=== PATIENT | female | born 1940 | race Caucasian/White ===

== ENCOUNTER 2016-07-29 15:15 | Inpatient (IN) | payer OTHER ==
--- NOTE | 2016-07-29 16:36 | PDOC ---
History of Present Illness - General History Source: Patient Exam Limitations: No Limitations - History of Present Illness Initial Comments: 07/29/16 16:38 Patient is a 76 year old female with significant past medical history of anemia , asthma, hypertension and hiatal hernia who presents to the ED with SOB and cough for 5 days. Patient reports cough and bringing up green phlegm. Patient denies fever, chills, nausea, vomiting, abdominal pain or hematochezia. Patient notes that she was transfused in the past for her anemia. <Shayy Freitas - Last Filed: 07/29/16 17:22> <Vik Car - Last Filed: 07/29/16 17:25> - General Chief Complaint: Shortness of Breath Stated Complaint: sat 93% ASTHMA, COLD SYMPTOMS Time Seen by Provider: 07/29/16 16:11 Past History <Shayy Freitas - Last Filed: 07/29/16 17:22> - Past Medical History Anemia: Yes Asthma: Yes Cancer: No Cardiac Disorders: Yes (ANGIOGRAM CARDIAC CATH 07/30/13) CVA: No COPD: No CHF: No Dementia: No Diabetes: Yes (NIDDM) GI Disorders: No Disorders: No HTN: Yes Hypercholesterolemia: Yes Liver Disease: No Seizures: No Thyroid Disease: No - Surgical History Abdominal Surgery: Yes Appendectomy: Yes Cardiac Surgery: No Cholecystectomy: No Lung Surgery: No Neurologic Surgery: No Orthopedic Surgery: No - Psycho/Social/Smoking Cessation Hx Anxiety: No Suicidal Ideation: No Smoking Status: No Smoking History: Never smoked Have you smoked in the past 12 months: No Number of Cigarettes Smoked Daily: 0 Information on smoking cessation initiated: No Hx Alcohol Use: No Drug/Substance Use Hx: No Substance Use Type: None Hx Substance Use Treatment: No <Vik Car - Last Filed: 07/29/16 17:25> - Past Medical History Allergies/Adverse Reactions: Allergies Allergy/AdvReac Type Severity Reaction Status Date / Time nitrofurantoin Allergy Intermediate Itching Verified 07/29/16 15:44 macrocrystalline [From Macrodantin] shellfish derived Allergy Intermediate Itching Verified 07/29/16 15:44 banana [Banana] Allergy Mild Nausea Verified 07/29/16 15:44 Home Medications: Ambulatory Orders Albuterol Sulfate Inhaler - [Ventolin HFA Inhaler -] 2 inh PO Q4H PRN 07/12/13 Amlodipine Besylate [Norvasc -] 10 mg PO DAILY 07/12/13 Clonidine HCl 0.1 mg PO DAILY 07/12/13 Losartan/Hydrochlorothiazide [Losartan-Hctz 100-25 mg Tab] 1 each PO DAILY 07/12 Metformin Xr [Glucophage Xr -] 1,000 mg PO BID 07/12/13 Montelukast Na [Singulair -] 10 mg PO HS 07/12/13 Salmeterol/Fluticasone [Advair 250Mcg/50Mcg -] 1 inh IH BID 07/12/13 Theophylline Anhydrous [Theophylline] 150 mg PO DAILY 07/12/13 Atorvastatin Ca [Lipitor] 40 mg PO HS 08/10/13 Labetalol HCl [Trandate] 50 mg PO BID 08/10/13 Oxycodone HCl/Acetaminophen [Percocet 5-325 mg Tablet -] 1 - 2 tab PO Q4H PRN # 30 tablet 08/11/13 Review of Systems - Review of Systems Able to Perform ROS?: Yes Comments:: 07/29/16 16:38 General: Absent: fever, chills Respiratory: +cough, +SOB GI: Absent: nausea, vomiting, abdominal pain, hematochezia <Shayy Freitas - Last Filed: 07/29/16 17:22> *Physical Exam - Vital Signs Last Vital Signs Temp Pulse Resp BP Pulse Ox 98.3 F 71 22 144/64 95 07/29/16 15:45 07/29/16 15:45 07/29/16 15:45 07/29/16 15:45 07/29/16 16:09 <Sahyy Freitas - Last Filed: 07/29/16 17:22> - Vital Signs Last Vital Signs Temp Pulse Resp BP Pulse Ox 98.3 F 71 22 144/64 95 07/29/16 15:45 07/29/16 15:45 07/29/16 15:45 07/29/16 15:45 07/29/16 16:09 - Physical Exam General Appearance: Yes: Nourished, Appropriately Dressed, Mild Distress HEENT: positive: Normal ENT Inspection Neck: positive: Supple. negative: Tender, Carotid bruit Respiratory/Chest: positive: Lungs Clear, Normal Breath Sounds, Respiratory Distress (MILD NOT FULL SENTENCESS) Cardiovascular: positive: Regular Rhythm, Regular Rate Gastrointestinal/Abdominal: positive: Normal Bowel Sounds, Soft. negative: Tender Musculoskeletal: positive: Normal Inspection. negative: CVA Tenderness Extremity: positive: Normal Capillary Refill, Normal Range of Motion. negative : Pedal Edema Integumentary: positive: Normal Color, Pale. negative: Petechiae, Ecchymosis, Bruising Neurologic: positive: Fully Oriented, Alert, Normal Mood/Affect, Normal Response , Motor Strength 5/5 <Vik Car - Last Filed: 07/29/16 17:25> Heart Score/ECG Review #1 07/29/16 16:46 ECG was reviewed by Dr. Chacon Impression: Normal sinus rhythm Left axis deviation Septal infarct Vent rate 66 bpm <Shayy Freitas - Last Filed: 07/29/16 17:22> ED Treatment Course - LABORATORY CBC & Chemistry Diagram: 07/29/16 16:38 07/29/16 16:38 <Shayy Freitas - Last Filed: 07/29/16 17:22> - LABORATORY CBC & Chemistry Diagram: 07/29/16 16:38 07/29/16 16:38 <Vik Car - Last Filed: 07/29/16 17:25> Medical Decision Making - Medical Decision Making 07/29/16 17:[address] with Dr. Messer. Patient will be admitted. Will be placed on abx and transfused. <Shayy Freitas - Last Filed: 07/29/16 17:22> *DC/Admit/Observation/Transfer - Attestations Scribe Attestion: 07/29/16 16:38 Documentation prepared by MARIFER Clarke, acting as medical physiologist for Vik Car MD/DO. <Shayy Freitas - Last Filed: 07/29/16 17:22> - Discharge Dispostion Admit: Yes <Vik Car - Last Filed: 07/29/16 17:25> Diagnosis at time of Disposition: Symptomatic anemia, Bronchitis - Referrals Referrals: Aman Griffin MD [Primary Care Provider] -
[2016-07-29] MEDS ORDERED: SODIUM CHLORIDE 1,000 ML IV SCH (16:45)
[2016-07-29 16:52] LABS: MEAN CELL VOLUME 61.7 fl (80-96); MEAN PLT VOLUME 9.6 fl (7.5-11.1); PLATELET COUNT 262 K/MM3 (134-434); RDW 19.1 % (11.6-15.6); WHITE BLOOD COUNT 8.5 K/mm3 (4.0-10.0)
[2016-07-29 16:54] LABS: MCH 18.5 pg (25.7-33.7)
[2016-07-29 17:21] LABS: ALBUMIN 3.1 g/dl (3.4-5.0); ALK PHOS 100 U/L (45-117); ANION GAP 8 (8-16); BILIRUBIN,TOTAL 0.4 mg/dL (0.2-1.0); CALCIUM 8.9 mg/dL (8.5-10.1); CO2 27 mmol/L (21-32); CREATININE 0.9 mg/dL (0.55-1.02); GLUCOSE,RANDOM 165 mg/dL (74-106); SGOT/AST 19 U/L (15-37); SGPT/ALT 18 U/L (12-78); TOT PROT 6.7 g/dl (6.4-8.2)
[2016-07-29] MEDS ORDERED: methylPREDNISolone NA SUCC 125 MG/2 ML VIAL IVPB ONE (17:23)
[2016-07-29] MEDS ORDERED: methylPREDNISolone NA SUCC 125 MG/2 ML VIAL ONE (17:37)
[2016-07-29 20:31] LABS: ANISOCYTOSIS 1+; HYPOCHROMIA 3+; MICROCYTOSIS 2+; OVALOCYTES 1+; PLATELET ESTIMATE ADEQUATE (NORMAL); POIKILOCYTOSIS 1+; POLYCHROMASIA 1+; TEAR DROP CELLS RARE
[2016-07-29] MEDS ORDERED: ACETAMINOPHEN 325 MG TABLET (FP) PO PRN (20:58)
--- NOTE | 2016-07-29 21:01 | HP ---
Admitting History and Physical - Primary Care Physician PCP: Félix Messer - Admission History of Present Illness: Patient is a 76 year old female with significant past medical history of anemia , asthma, hypertension and hiatal hernia who presents to the ED with SOB and cough for 5 days. Patient reports cough and bringing up green phlegm. she was transfused in the past for her anemia. - Past Medical History Cardiovascular: Yes: HTN, Hyperlipdemia Pulmonary: Yes: Asthma Endocrine: Yes: Diabetes Mellitus - Smoking History Smoking history: Never smoked Have you smoked in the past 12 months: No Aproximately how many cigarettes per day: 0 - Alcohol/Substance Use Hx Alcohol Use: No Home Medications - Allergies Allergies/Adverse Reactions: Allergies Allergy/AdvReac Type Severity Reaction Status Date / Time nitrofurantoin Allergy Intermediate Itching Verified 07/29/16 15:44 macrocrystalline [From Macrodantin] shellfish derived Allergy Intermediate Itching Verified 07/29/16 15:44 banana [Banana] Allergy Mild Nausea Verified 07/29/16 15:44 - Home Medications Home Medications: Ambulatory Orders Albuterol Sulfate Inhaler - [Ventolin HFA Inhaler -] 2 inh PO Q4H PRN 07/12/13 Amlodipine Besylate [Norvasc -] 10 mg PO DAILY 07/12/13 Clonidine HCl 0.1 mg PO DAILY 07/12/13 Losartan/Hydrochlorothiazide [Losartan-Hctz 100-25 mg Tab] 1 each PO DAILY 07/12 Metformin Xr [Glucophage Xr -] 1,000 mg PO BID 07/12/13 Montelukast Na [Singulair -] 10 mg PO HS 07/12/13 Salmeterol/Fluticasone [Advair 250Mcg/50Mcg -] 1 inh IH BID 07/12/13 Theophylline Anhydrous [Theophylline] 150 mg PO DAILY 07/12/13 Atorvastatin Ca [Lipitor] 40 mg PO HS 08/10/13 Labetalol HCl [Trandate] 50 mg PO BID 08/10/13 Oxycodone HCl/Acetaminophen [Percocet 5-325 mg Tablet -] 1 - 2 tab PO Q4H PRN # 30 tablet 08/11/13 Physical Examination Vital Signs: Vital Signs Temperature 98.7 F 07/29/16 20:56 Pulse Rate 90 07/29/16 20:56 Respiratory Rate 20 07/29/16 20:56 Blood Pressure 156/61 07/29/16 20:56 O2 Sat by Pulse Oximetry (%) 98 07/29/16 20:56 Constitutional: Yes: No Distress HENT: Yes: Atraumatic Neck: Yes: Supple Cardiovascular: Yes: Regular Rate and Rhythm Respiratory: Yes: Rhonchi Gastrointestinal: Yes: Normal Bowel Sounds Extremities: Yes: WNL Neurological: Yes: Alert, Oriented Imaging - Results X-ray: Report Reviewed Problem List - Problems (1) Bronchitis Code(s): J40 - BRONCHITIS, NOT SPECIFIED ACUTE OR CHRONIC (2) Symptomatic anemia Code(s): D64.9 - ANEMIA, UNSPECIFIED Assessment/Plan Laboratory Tests 07/29/16 07/29/16 07/29/16 16:38 16:38 16:38 WBC 8.5 RBC 4.80 Hgb 8.9 L Hct 29.6 L MCV 61.7 L MCHC 30.0 L RDW 19.1 H Plt Count 262 MPV 9.6 D Platelet Estimate Adequate Platelet Comment Few giant plts Polychromasia 1+ Hypochromic-Microcytic 3+ Poikilocytosis 1+ Anisocytosis 1+ Microcytosis 2+ Macrocytosis Rare Tear Drop Cells Rare Ovalocytes 1+ Morphology Comment Slide scanned Sodium 140 Potassium 4.8 Chloride 105 Carbon Dioxide 27 Anion Gap 8 BUN 12 D Creatinine 0.9 Creat Clearance w eGFR > 60 Random Glucose 165 H Calcium 8.9 Total Bilirubin 0.4 D AST 19 D ALT 18 D Alkaline Phosphatase 100 D Total Protein 6.7 Albumin 3.1 L Blood Type A POSITIVE Antibody Screen Negative Crossmatch See Detail 07/29/16 17:40 WBC RBC Hgb Hct MCV MCHC RDW Plt Count MPV Platelet Estimate Platelet Comment Polychromasia Hypochromic-Microcytic Poikilocytosis Anisocytosis Microcytosis Macrocytosis Tear Drop Cells Ovalocytes Morphology Comment Sodium Potassium Chloride Carbon Dioxide Anion Gap BUN Creatinine Creat Clearance w eGFR Random Glucose Calcium Total Bilirubin AST ALT Alkaline Phosphatase Total Protein Albumin Blood Type A POSITIVE Antibody Screen Crossmatch Active Medications Generic Name Dose Route Start Last Admin Trade Name Freq PRN Reason Stop Dose Admin Acetaminophen 650 mg 07/29/16 20:58 Tylenol - PO Q6H PRN FEVER OR PAIN Amlodipine Besylate 10 mg 07/30/16 10:00 Norvasc - PO DAILY [facility] Atorvastatin Calcium 40 mg 07/29/16 22:00 Lipitor - PO HS [facility] Sodium Chloride 1,000 mls @ 125 mls/hr 07/29/16 16:45 07/29/16 16:41 Normal Saline - IV 125 mls/hr ASDIR [facility] Administration Ceftriaxone Sodium 1 gm/ 100 mls @ 200 mls/hr 07/30/16 10:00 Dextrose IVPB 07/30/16 11:59 DAILY [facility] Labetalol HCl 50 mg 07/29/16 22:00 Normodyne - PO BID [facility] Metformin HCl 1,000 mg 07/29/16 22:00 Glucophage Xr - PO BID [facility] Montelukast Sodium 10 mg 07/29/16 22:00 Singulair - PO HS [facility] Non-Formulary Medication 0.1 mg 07/30/16 10:00 Clonidine Hcl [Clonidine Hcl] PO DAILY [facility]
[2016-07-29] MEDS: ATORVASTATIN CA 40 MG TABLET (FP) PO SCH (22:27)
[2016-07-29] MEDS: MONTELUKAST NA 10 MG TABLET PO SCH (22:27)
[2016-07-29] MEDS: LABETALOL HCL 100 MG TABLET (FP) PO SCH (22:27)
[2016-07-29] MEDS ORDERED: LABETALOL HCL 100 MG TABLET (FP) ONE (22:28)
[2016-07-29] MEDS ORDERED: ATORVASTATIN CA 40 MG TABLET (FP) ONE (22:29)
[2016-07-29] MEDS ORDERED: MONTELUKAST NA 10 MG TABLET ONE (22:29)
[2016-07-30 03:35] VITALS: BMI 28.0
[2016-07-30 07:01] LABS: MCH 20.4 pg (25.7-33.7); MEAN CELL VOLUME 65.9 fl (80-96); MEAN PLT VOLUME 9.6 fl (7.5-11.1); PLATELET COUNT 202 K/MM3 (134-434); RDW 22.2 % (11.6-15.6); WHITE BLOOD COUNT 7.4 K/mm3 (4.0-10.0)
[2016-07-30 07:57] LABS: ANION GAP 6 (8-16); CALCIUM 9.2 mg/dL (8.5-10.1); CO2 29 mmol/L (21-32); CREATININE 0.8 mg/dL (0.55-1.02); GLUCOSE,RANDOM 209 mg/dL (74-106); SGOT/AST 12 U/L (15-37); SGPT/ALT 19 U/L (12-78)
[2016-07-30 07:59] LABS: ALK PHOS 94 U/L (45-117); BILIRUBIN,TOTAL 0.7 mg/dL (0.2-1.0); TOT PROT 6.5 g/dl (6.4-8.2)
[2016-07-30 09:15] LABS: METAMYELOCYTE 2 % (0-2)
[2016-07-30] MEDS: LABETALOL HCL 100 MG TABLET (FP) PO SCH ×2 (09:54→21:05)
[2016-07-30] MEDS: cloNIDine HCL 0.1 MG TABLET PO SCH (09:55)
[2016-07-30] MEDS: amLODIPine BESYLATE 10 MG TABLET (FP) PO SCH (09:55)
[2016-07-30] MEDS ORDERED: CEFTRIAXONE 50 ML IVPB SCH (10:00)
--- NOTE | 2016-07-30 13:44 | CONSULT ---
Consult Consult Specialty:: infectious diseases Referred by:: Reason for Consultation:: pnemonia - History of Present Illness Chief Complaint: cough,sob History of Present Illness: 76 year old female with significant past medical history of anemia, asthma, hypertension and hiatal hernia who presents to the ED with SOB and cough for 5 days. Patient reports cough and bringing up green phlegm. Patient denies fever, chills, nausea, vomiting, abdominal pain or hematochezia. patient mentions that her sob is so bad that she cannot walk even short distance on sitting she feels better - History Source History Provided By: Patient Limitations to Obtaining History: No Limitations - Past Medical History Cardio/Vascular: Yes: HTN, Hyperlipdemia Pulmonary: Yes: Asthma Endocrine: Yes: Diabetes Mellitus - Alcohol/Substance Use Hx Alcohol Use: No - Smoking History Smoking history: Never smoked Have you smoked in the past 12 months: No Aproximately how many cigarettes per day: 0 Home Medications - Allergies Allergies/Adverse Reactions: Allergies Allergy/AdvReac Type Severity Reaction Status Date / Time nitrofurantoin Allergy Intermediate Itching Verified 07/29/16 15:44 macrocrystalline [From Macrodantin] shellfish derived Allergy Intermediate Itching Verified 07/29/16 15:44 banana [Banana] Allergy Mild Nausea Verified 07/29/16 15:44 - Home Medications Home Medications: Ambulatory Orders Albuterol Sulfate Inhaler - [Ventolin HFA Inhaler -] 2 inh PO Q4H PRN 07/12/13 Amlodipine Besylate [Norvasc -] 10 mg PO DAILY 07/12/13 Clonidine HCl 0.1 mg PO DAILY 07/12/13 Losartan/Hydrochlorothiazide [Losartan-Hctz 100-25 mg Tab] 1 each PO DAILY 07/12 Metformin Xr [Glucophage Xr -] 1,000 mg PO BID 07/12/13 Montelukast Na [Singulair -] 10 mg PO HS 07/12/13 Salmeterol/Fluticasone [Advair 250Mcg/50Mcg -] 1 inh IH BID 07/12/13 Theophylline Anhydrous [Theophylline] 150 mg PO DAILY 07/12/13 Atorvastatin Ca [Lipitor] 40 mg PO HS 08/10/13 Labetalol HCl [Trandate] 50 mg PO BID 08/10/13 Oxycodone HCl/Acetaminophen [Percocet 5-325 mg Tablet -] 1 - 2 tab PO Q4H PRN # 30 tablet 08/11/13 Review of Systems - Review of Systems Constitutional: reports: No Symptoms Eyes: reports: No Symptoms HENT: reports: No Symptoms Neck: reports: No Symptoms Cardiovascular: reports: No Symptoms Respiratory: reports: Cough, SOB, SOB on Exertion, Other (sputum production) Musculoskeletal: reports: No Symptoms Integumentary: reports: No Symptoms Neurological: reports: No Symptoms Endocrine: reports: No Symptoms Hematology/Lymphatic: reports: No Symptoms Psychiatric: reports: No Symptoms Physical Exam Vital Signs: Vital Signs Temperature 98.1 F 07/30/16 10:00 Pulse Rate 78 07/30/16 10:00 Respiratory Rate 18 07/30/16 10:00 Blood Pressure 170/79 07/30/16 10:00 O2 Sat by Pulse Oximetry (%) 94 L 07/30/16 10:00 Constitutional: Yes: Well Nourished, Calm, Mild Distress Neck: Yes: Supple, Trachea Midline Cardiovascular: Yes: Regular Rate and Rhythm Respiratory: Yes: Regular, Other (poor air entry) Gastrointestinal: Yes: Normal Bowel Sounds, Soft Musculoskeletal: Yes: WNL Extremities: Yes: WNL Neurological: Yes: Alert, Oriented Psychiatric: Yes: Alert, Oriented Labs: CBC, BMP 07/30/16 05:35 07/30/16 05:40 Imaging - Results Chest X-ray: Report Reviewed, Image Reviewed Assessment/Plan Problem List - Problems (1) Bronchitis Code(s): J40 - BRONCHITIS, NOT SPECIFIED ACUTE OR CHRONIC (2) Symptomatic anemia Code(s): D64.9 - ANEMIA, UNSPECIFIED 3 pneumonia plan change abx to zosyn as patient is still having greenish sputum will also add zithromax
--- NOTE | 2016-07-30 14:36 | EKG ---
Test Reason : Blood Pressure : / mmHG Vent. Rate : 066 BPM Atrial Rate : 066 BPM P-R Int : 152 ms QRS Dur : 116 ms QT Int : 414 ms P-R-T Axes : 075 -52 062 degrees QTc Int : 434 ms NORMAL SINUS RHYTHM LEFT AXIS DEVIATION NON-SPECIFIC INTRA-VENTRICULAR CONDUCTION DELAY CANNOT RULE OUT ANTEROSEPTAL INFARCT (CITED ON OR BEFORE 12-JUL-2013) ABNORMAL ECG WHEN COMPARED WITH ECG OF 05-AUG-2013 16:38, LIKELY NO SIGNIFICANT CHANGES Confirmed by AFRICA MICHAUD MD ([id number]) on 07/30/2016 2:35:52 PM Referred By: Confirmed By:AFRICA MICHAUD MD
[2016-07-30] MEDS: PIPERACILLIN/TAZOB 2.25 GM 50 ML IVPB SCH ×2 (14:59→17:12)
[2016-07-30] MEDS: AZITHROMYCIN 250 MG TABLET (FP) PO SCH (14:59)
--- NOTE | 2016-07-30 19:37 | PN ---
Progress Note, Physician - Current Medication List Current Medications: Active Medications Acetaminophen (Tylenol -) 650 mg PO Q6H PRN PRN Reason: FEVER OR PAIN Amlodipine Besylate (Norvasc -) 10 mg PO DAILY [facility] Last Admin: 07/30/16 09:55 Dose: 10 mg Atorvastatin Calcium (Lipitor -) 40 mg PO HS [facility] Last Admin: 07/29/16 22:27 Dose: 40 mg Azithromycin (Zithromax -) 500 mg PO DAILY [facility] Last Admin: 07/30/16 14:59 Dose: 500 mg Clonidine (Catapres -) 0.1 mg PO DAILY [facility] Last Admin: 07/30/16 09:55 Dose: 0.1 mg Piperacillin Sod/Tazobactam Sod (Zosyn 2.25gm Ivpb (Pre-Docked)) 50 mls @ 100 mls/hr IVPB Q8H-IV [facility] PRN Reason: Protocol Last Admin: 07/30/16 17:12 Dose: Not Given Labetalol HCl (Normodyne -) 50 mg PO BID [facility] Last Admin: 07/30/16 09:54 Dose: 50 mg [facility] Last Admin: 07/30/16 17:11 Dose: 1,000 mg Montelukast Sodium (Singulair -) 10 mg PO [facility] Last Admin: 07/29/16 22:27 Dose: 10 mg - Objective Vital Signs: Vital Signs Temperature 98.0 F 07/30/16 18:00 Pulse Rate 74 07/30/16 18:00 Respiratory Rate 18 07/30/16 18:00 Blood Pressure 157/74 07/30/16 18:00 O2 Sat by Pulse Oximetry (%) 94 L 07/30/16 18:00 Constitutional: Yes: No Distress HENT: Yes: Atraumatic Neck: Yes: Supple Cardiovascular: Yes: Regular Rate and Rhythm Respiratory: Yes: Rhonchi Gastrointestinal: Yes: Normal Bowel Sounds Extremities: Yes: WNL Neurological: Yes: Alert, Oriented Labs: CBC, BMP 07/30/16 05:35 07/30/16 05:40 Problem List - Problems (1) Bronchitis Code(s): J40 - BRONCHITIS, NOT SPECIFIED ACUTE OR CHRONIC (2) Symptomatic anemia Code(s): D64.9 - ANEMIA, UNSPECIFIED Assessment/Plan 1.bronchitis on abx per id 2.anemia s/p blood transfusion stable
[2016-07-30] MEDS: MONTELUKAST NA 10 MG TABLET PO SCH (21:05)
[2016-07-30] MEDS: ATORVASTATIN CA 40 MG TABLET (FP) PO SCH (21:05)
[2016-07-31] MEDS: PIPERACILLIN/TAZOB 2.25 GM 50 ML IVPB SCH ×3 (01:13→17:23)
[2016-07-31] MEDS ORDERED: ALBUTEROL SO4 0.083% IH SOL 2.5 MG/3 ML VIAL.NEB. NEB ONE (06:30)
[2016-07-31] MEDS ORDERED: ALBUTEROL SO4 0.083% IH SOL 2.5 MG/3 ML VIAL.NEB. NEB PRN (06:55)
[2016-07-31] MEDS ORDERED: PT OWN MED DRAWER 7, Y5N ONE ×2 (09:19→17:10)
[2016-07-31] MEDS: AZITHROMYCIN 250 MG TABLET (FP) PO SCH (09:26)
[2016-07-31] MEDS: amLODIPine BESYLATE 10 MG TABLET (FP) PO SCH (09:26)
[2016-07-31] MEDS: cloNIDine HCL 0.1 MG TABLET PO SCH (09:26)
[2016-07-31] MEDS: LABETALOL HCL 100 MG TABLET (FP) PO SCH ×2 (09:26→21:10)
--- NOTE | 2016-07-31 16:32 | PN ---
Progress Note, Physician History of Present Illness: patient says she is having loose stools has gone couple of times - Current Medication List Current Medications: Active Medications Acetaminophen (Tylenol -) 650 mg PO Q6H PRN PRN Reason: FEVER OR PAIN Albuterol Sulfate (Ventolin 0.083% Nebulizer Soln -) 1 amp NEB Q6H PRN PRN Reason: SHORT OF BREATH/WHEEZING Last Admin: 07/31/16 06:15 Dose: 1 amp Amlodipine Besylate (Norvasc -) 10 mg PO DAILY [facility] Last Admin: 07/31/16 09:26 Dose: 10 mg Atorvastatin Calcium (Lipitor -) 40 mg PO [facility] Last Admin: 07/30/16 21:05 Dose: 40 mg Azithromycin (Zithromax -) 500 mg PO DAILY [facility] Last Admin: 07/31/16 09:26 Dose: 500 mg Clonidine (Catapres -) 0.1 mg PO DAILY [facility] Last Admin: 07/31/16 09:26 Dose: 0.1 mg Piperacillin Sod/Tazobactam Sod (Zosyn 2.25gm Ivpb (Pre-Docked)) 50 mls @ 100 mls/hr IVPB Q8H-IV [facility] PRN Reason: Protocol Last Admin: 07/31/16 09:25 Dose: 100 mls/hr Labetalol HCl (Normodyne -) 50 mg PO BID [facility] Last Admin: 07/31/16 09:26 Dose: 50 mg Metformin HCl (Glucophage Xr -) 1,000 mg PO BIDAC [facility] Last Admin: 07/31/16 08:38 Dose: 1,000 mg Montelukast Sodium (Singulair -) 10 mg PO [facility] Last Admin: 07/30/16 21:05 Dose: 10 mg - Objective Vital Signs: Vital Signs Temperature 98.1 F 07/31/16 14:36 Pulse Rate 71 07/31/16 14:36 Respiratory Rate 24 07/31/16 14:36 Blood Pressure 139/73 07/31/16 14:36 O2 Sat by Pulse Oximetry (%) 94 L 07/31/16 08:45 Constitutional: Yes: No Distress, Calm Cardiovascular: Yes: Regular Rate and Rhythm Respiratory: Yes: Regular, Poor Air Entry Gastrointestinal: Yes: Normal Bowel Sounds, Soft Musculoskeletal: Yes: WNL Extremities: Yes: WNL Neurological: Yes: Alert, Oriented Psychiatric: Yes: Alert Labs: CBC, BMP 07/30/16 05:35 07/30/16 05:40 Assessment/Plan Problem List - Problems (1) Bronchitis Code(s): J40 - BRONCHITIS, NOT SPECIFIED ACUTE OR CHRONIC (2) Symptomatic anemia Code(s): D64.9 - ANEMIA, UNSPECIFIED 3 pneumonia plan continue abx for now will send stool for cdiff
--- NOTE | 2016-07-31 19:19 | PN ---
Progress Note, Physician History of Present Illness: loose stools - Current Medication List Current Medications: Active Medications Acetaminophen (Tylenol -) 650 mg PO Q6H PRN PRN Reason: FEVER OR PAIN Albuterol Sulfate (Ventolin 0.083% Nebulizer Soln -) 1 amp NEB Q6H PRN PRN Reason: SHORT OF BREATH/WHEEZING Last Admin: 07/31/16 06:15 Dose: 1 amp Amlodipine Besylate (Norvasc -) 10 mg PO DAILY [facility] Last Admin: 07/31/16 09:26 Dose: 10 mg Atorvastatin Calcium (Lipitor -) 40 mg PO HS [facility] Last Admin: 07/30/16 21:05 Dose: 40 mg Azithromycin (Zithromax -) 500 mg PO DAILY [facility] Last Admin: 07/31/16 09:26 Dose: 500 mg Clonidine (Catapres -) 0.1 mg PO DAILY [facility] Last Admin: 07/31/16 09:26 Dose: 0.1 mg Piperacillin Sod/Tazobactam Sod (Zosyn 2.25gm Ivpb (Pre-Docked)) 50 mls @ 100 mls/hr IVPB Q8H-IV [facility] PRN Reason: Protocol Last Admin: 07/31/16 17:23 Dose: 100 mls/hr Labetalol HCl (Normodyne -) 50 mg PO BID [facility] Last Admin: 07/31/16 09:26 Dose: 50 mg Metformin HCl (Glucophage Xr -) 1,000 mg PO BIDAC [facility] Last Admin: 07/31/16 17:23 Dose: 1,000 mg Montelukast Sodium (Singulair -) 10 mg PO [facility] Last Admin: 07/30/16 21:05 Dose: 10 mg - Objective Vital Signs: Vital Signs Temperature 97.7 F 07/31/16 17:52 Pulse Rate 80 07/31/16 17:52 Respiratory Rate 20 07/31/16 17:52 Blood Pressure 139/73 07/31/16 14:36 O2 Sat by Pulse Oximetry (%) 94 L 07/31/16 08:45 Constitutional: Yes: No Distress HENT: Yes: Atraumatic Neck: Yes: Supple Cardiovascular: Yes: Regular Rate and Rhythm Respiratory: Yes: CTA Bilaterally Gastrointestinal: Yes: Normal Bowel Sounds Extremities: Yes: WNL Labs: CBC, BMP 07/30/16 05:35 07/30/16 05:40 Problem List - Problems (1) Bronchitis Code(s): J40 - BRONCHITIS, NOT SPECIFIED ACUTE OR CHRONIC (2) Symptomatic anemia Code(s): D64.9 - ANEMIA, UNSPECIFIED Assessment/Plan 1.bronchitis on abx per id 2.anemia s/p blood transfusion stable 3.diarrhea will check c diff
[2016-07-31] MEDS: MONTELUKAST NA 10 MG TABLET PO SCH (21:10)
[2016-07-31] MEDS: ATORVASTATIN CA 40 MG TABLET (FP) PO SCH (21:10)
[2016-07-31] MEDS: predniSONE 20 MG TABLET (UD) PO SCH (21:10)
[2016-08-01] MEDS: PIPERACILLIN/TAZOB 2.25 GM 50 ML IVPB SCH ×3 (01:44→17:24)
[2016-08-01 06:54] LABS: MCH 20.5 pg (25.7-33.7); MCHC 31.2 g/dl (32.0-36.0); MEAN CELL VOLUME 65.6 fl (80-96); MEAN PLT VOLUME 9.4 fl (7.5-11.1); PLATELET COUNT 222 K/MM3 (134-434); RDW 23.4 % (11.6-15.6); WHITE BLOOD COUNT 9.3 K/mm3 (4.0-10.0)
[2016-08-01] MEDS: AZITHROMYCIN 250 MG TABLET (FP) PO SCH (09:53)
[2016-08-01] MEDS: predniSONE 20 MG TABLET (UD) PO SCH (09:53)
[2016-08-01] MEDS: cloNIDine HCL 0.1 MG TABLET PO SCH (09:53)
[2016-08-01] MEDS: amLODIPine BESYLATE 10 MG TABLET (FP) PO SCH (09:53)
[2016-08-01] MEDS: LABETALOL HCL 100 MG TABLET (FP) PO SCH ×2 (09:54→21:56)
[2016-08-01 11:04] LABS: ANISOCYTOSIS 3+; HYPOCHROMIA 2+; MICROCYTOSIS 2+
--- NOTE | 2016-08-01 15:11 | PN ---
Progress Note, Physician History of Present Illness: patient feels much better dirrhoea improving cdiff negative - Current Medication List Current Medications: Active Medications Acetaminophen (Tylenol -) 650 mg PO Q6H PRN PRN Reason: FEVER OR PAIN Albuterol Sulfate (Ventolin 0.083% Nebulizer Soln -) 1 amp NEB Q6H PRN PRN Reason: SHORT OF BREATH/WHEEZING Last Admin: 07/31/16 06:15 Dose: 1 amp Amlodipine Besylate (Norvasc -) 10 mg PO DAILY [facility] Last Admin: 08/01/16 09:53 Dose: 10 mg Atorvastatin Calcium (Lipitor -) 40 mg PO [facility] Last Admin: 07/31/16 21:10 Dose: 40 mg Azithromycin (Zithromax -) 500 mg PO DAILY [facility] Last Admin: 08/01/16 09:53 Dose: 500 mg Clonidine (Catapres -) 0.1 mg PO DAILY [facility] Last Admin: 08/01/16 09:53 Dose: 0.1 mg Piperacillin Sod/Tazobactam Sod (Zosyn 2.25gm Ivpb (Pre-Docked)) 50 mls @ 100 mls/hr IVPB Q8H-IV [facility] PRN Reason: Protocol Last Admin: 08/01/16 09:55 Dose: 100 mls/hr Labetalol HCl (Normodyne -) 50 mg PO BID [facility] Last Admin: 08/01/16 09:54 Dose: 50 mg Metformin HCl (Glucophage Xr -) 1,000 mg PO BIDAC [facility] Last Admin: 08/01/16 06:51 Dose: 1,000 mg Montelukast Sodium (Singulair -) 10 mg PO [facility] Last Admin: 07/31/16 21:10 Dose: 10 mg Prednisone (Deltasone -) 40 mg PO DAILY [facility] Last Admin: 08/01/16 09:53 Dose: 40 mg - Objective Vital Signs: Vital Signs Temperature 97.8 F 08/01/16 14:21 Pulse Rate 72 08/01/16 14:21 Respiratory Rate 20 08/01/16 14:21 Blood Pressure 131/77 08/01/16 14:21 O2 Sat by Pulse Oximetry (%) 94 L 08/01/16 10:46 Constitutional: Yes: No Distress, Calm Cardiovascular: Yes: Regular Rate and Rhythm Respiratory: Yes: Regular, Poor Air Entry Gastrointestinal: Yes: Normal Bowel Sounds, Soft Musculoskeletal: Yes: WNL Extremities: Yes: WNL Neurological: Yes: Alert, Oriented Psychiatric: Yes: Alert Assessment/Plan Problem List - Problems (1) Bronchitis Code(s): J40 - BRONCHITIS, NOT SPECIFIED ACUTE OR CHRONIC (2) Symptomatic anemia Code(s): D64.9 - ANEMIA, UNSPECIFIED 3 pneumonia plan continue abx will switch to oral on friday incentive amber rest ct current mgmt
--- NOTE | 2016-08-01 18:10 | PN ---
Progress Note, Physician History of Present Illness: loose stools - Current Medication List Current Medications: Active Medications Acetaminophen (Tylenol -) 650 mg PO Q6H PRN PRN Reason: FEVER OR PAIN Albuterol Sulfate (Ventolin 0.083% Nebulizer Soln -) 1 amp NEB Q6H PRN PRN Reason: SHORT OF BREATH/WHEEZING Last Admin: 07/31/16 06:15 Dose: 1 amp Amlodipine Besylate (Norvasc -) 10 mg PO DAILY [facility] Last Admin: 08/01/16 09:53 Dose: 10 mg Atorvastatin Calcium (Lipitor -) 40 mg PO HS [facility] Last Admin: 07/31/16 21:10 Dose: 40 mg Azithromycin (Zithromax -) 500 mg PO DAILY [facility] Last Admin: 08/01/16 09:53 Dose: 500 mg Clonidine (Catapres -) 0.1 mg PO DAILY [facility] Last Admin: 08/01/16 09:53 Dose: 0.1 mg Piperacillin Sod/Tazobactam Sod (Zosyn 2.25gm Ivpb (Pre-Docked)) 50 mls @ 100 mls/hr IVPB Q8H-IV JUVENAL PRN Reason: Protocol Last Admin: 08/01/16 17:24 Dose: 100 mls/hr Labetalol HCl (Normodyne -) 50 mg PO BID [facility] Last Admin: 08/01/16 09:54 Dose: 50 mg Metformin HCl (Glucophage Xr -) 1,000 mg PO BIDAC [facility] Last Admin: 08/01/16 17:23 Dose: 1,000 mg Montelukast Sodium (Singulair -) 10 mg PO [facility] Last Admin: 07/31/16 21:10 Dose: 10 mg Prednisone (Deltasone -) 40 mg PO DAILY [facility] Last Admin: 08/01/16 09:53 Dose: 40 mg - Objective Vital Signs: Vital Signs Temperature 97.8 F 08/01/16 14:21 Pulse Rate 72 08/01/16 14:21 Respiratory Rate 20 08/01/16 14:21 Blood Pressure 131/77 08/01/16 14:21 O2 Sat by Pulse Oximetry (%) 94 L 08/01/16 10:46 Constitutional: Yes: No Distress HENT: Yes: Atraumatic Neck: Yes: Supple Cardiovascular: Yes: Regular Rate and Rhythm Respiratory: Yes: CTA Bilaterally Gastrointestinal: Yes: Normal Bowel Sounds Extremities: Yes: WNL Neurological: Yes: Alert, Oriented Problem List - Problems (1) Bronchitis Code(s): J40 - BRONCHITIS, NOT SPECIFIED ACUTE OR CHRONIC (2) Symptomatic anemia Code(s): D64.9 - ANEMIA, UNSPECIFIED Assessment/Plan 1.bronchitis on abx per id PO PREDNISONE 2.anemia s/p blood transfusion stable 3.diarrhea will check c diff
[2016-08-01] MEDS: MONTELUKAST NA 10 MG TABLET PO SCH (21:56)
[2016-08-01] MEDS: ATORVASTATIN CA 40 MG TABLET (FP) PO SCH (21:56)
[2016-08-02] MEDS: PIPERACILLIN/TAZOB 2.25 GM 50 ML IVPB SCH ×2 (01:50→09:50)
[2016-08-02] MEDS: LABETALOL HCL 100 MG TABLET (FP) PO SCH (09:47)
[2016-08-02] MEDS: cloNIDine HCL 0.1 MG TABLET PO SCH (09:48)
[2016-08-02] MEDS: predniSONE 20 MG TABLET (UD) PO SCH (09:48)
[2016-08-02] MEDS: amLODIPine BESYLATE 10 MG TABLET (FP) PO SCH (09:49)
[2016-08-02] MEDS: AZITHROMYCIN 250 MG TABLET (FP) PO SCH (09:49)
[2016-08-02 14:39] VITALS: BP 131/77; PULSE 68; TEMP 97.8
--- NOTE | 2016-08-02 16:16 | PN ---
Progress Note, Physician History of Present Illness: patient feels much better no new events - Current Medication List Current Medications: Active Medications Acetaminophen (Tylenol -) 650 mg PO Q6H PRN PRN Reason: FEVER OR PAIN Albuterol Sulfate (Ventolin 0.083% Nebulizer Soln -) 1 amp NEB Q6H PRN PRN Reason: SHORT OF BREATH/WHEEZING Last Admin: 07/31/16 06:15 Dose: 1 amp Amlodipine Besylate (Norvasc -) 10 mg PO DAILY [facility] Last Admin: 08/02/16 09:49 Dose: 10 mg Atorvastatin Calcium (Lipitor -) 40 mg PO [facility] Last Admin: 08/01/16 21:56 Dose: 40 mg Azithromycin (Zithromax -) 500 mg PO DAILY [facility] Last Admin: 08/02/16 09:49 Dose: 500 mg Clonidine (Catapres -) 0.1 mg PO DAILY [facility] Last Admin: 08/02/16 09:48 Dose: 0.1 mg Labetalol HCl (Normodyne -) 50 mg PO BID [facility] Last Admin: 08/02/16 09:47 Dose: 50 mg Metformin HCl (Glucophage Xr -) 1,000 mg PO BIDAC [facility] Last Admin: 08/02/16 09:50 Dose: 1,000 mg Montelukast Sodium (Singulair -) 10 mg PO [facility] Last Admin: 08/01/16 21:56 Dose: 10 mg Prednisone (Deltasone -) 40 mg PO DAILY [facility] Last Admin: 08/02/16 09:48 Dose: 40 mg - Objective Vital Signs: Vital Signs Temperature 97.8 F 08/02/16 14:00 Pulse Rate 68 08/02/16 14:00 Respiratory Rate 20 08/02/16 14:00 Blood Pressure 131/77 08/02/16 14:00 O2 Sat by Pulse Oximetry (%) 96 08/02/16 09:00 Constitutional: Yes: No Distress, Calm Cardiovascular: Yes: Regular Rate and Rhythm Respiratory: Yes: Regular, Poor Air Entry Gastrointestinal: Yes: Normal Bowel Sounds, Soft Musculoskeletal: Yes: WNL Extremities: Yes: WNL Neurological: Yes: Alert, Oriented Psychiatric: Yes: Alert Assessment/Plan Problem List - Problems (1) Bronchitis Code(s): J40 - BRONCHITIS, NOT SPECIFIED ACUTE OR CHRONIC (2) Symptomatic anemia Code(s): D64.9 - ANEMIA, UNSPECIFIED 3 pneumonia plan continue abx will switch to oral on friday incentive amber rest ct current mgmt
--- NOTE | 2016-08-02 16:43 | DS ---
Physical Examination Vital Signs: Vital Signs Temperature 97.8 F 08/02/16 14:00 Pulse Rate 68 08/02/16 14:00 Respiratory Rate 20 08/02/16 14:00 Blood Pressure 131/77 08/02/16 14:00 O2 Sat by Pulse Oximetry (%) 96 08/02/16 09:00 Discharge Summary Reason For Visit: ANEMIA,BRONCHITIS Current Active Problems Bronchitis (Acute) Symptomatic anemia (Acute) - Instructions Referrals: Aman Griffin MD [Primary Care Provider] - - Home Medications Comprehensive Discharge Medication List: Ambulatory Orders Albuterol Sulfate Inhaler - [Ventolin HFA Inhaler -] 2 inh PO Q4H PRN 07/12/13 Amlodipine Besylate [Norvasc -] 10 mg PO DAILY 07/12/13 Clonidine HCl 0.1 mg PO DAILY 07/12/13 Losartan/Hydrochlorothiazide [Losartan-Hctz 100-25 mg Tab] 1 each PO DAILY 07/12 Metformin Xr [Glucophage Xr -] 1,000 mg PO BID 07/12/13 Montelukast Na [Singulair -] 10 mg PO HS 07/12/13 Salmeterol/Fluticasone [Advair 250Mcg/50Mcg -] 1 inh IH BID 07/12/13 Theophylline Anhydrous [Theophylline] 150 mg PO DAILY 07/12/13 Atorvastatin Ca [Lipitor] 40 mg PO HS 08/10/13 Labetalol HCl [Trandate] 50 mg PO BID 08/10/13 Oxycodone HCl/Acetaminophen [Percocet 5-325 mg Tablet] 1 - 2 tab PO Q4H PRN #30 tablet 08/11/13 Amoxicillin/Potassium Clav [Augmentin 875-125 Tablet] 1 each PO BID #14 tablet 08/02/16 Prednisone 10 mg PO ASDIR #30 tablet 08/02/16 wy home...on po abx fu pmd on friday
== END 2016-08-02 17:55 | disposition home or self-care (01) | DRG 203 ==
LOC: JER 15:15 → JERBED 17:24 → J4S 07-30 03:19 → OBSVTOIN 08-01 08:30
PROVIDERS: ADMIT Internal Medicine; ATTEND Internal Medicine
PROC: 30233N1 Transfusion of Nonautologous Red Blood Cells into Peripheral Vein, Percutaneous Approach (ICD-10-PCS; principal; 2016-07-29)
DX: J20.9 Acute bronchitis, unspecified (principal); D64.9 Anemia, unspecified; I10 Essential (primary) hypertension; E78.5 Hyperlipidemia, unspecified; E11.9 Type 2 diabetes mellitus without complications; R19.7 Diarrhea, unspecified
CPT/HCPCS: 36415; 36430; 71020-TC; 80053; 85025; 85027; 86850; 86900; 86901; 86922; 87254; 87324; 87449; 87804; 93005; 93010; 94640; 94761; 99285-25; G0378; P9038; P9058